=== PATIENT | male | born 1960 | race Caucasian/White ===

== ENCOUNTER 2022-09-13 23:28 | Emergency (ER) | payer BC ==
[~2022-09-13] VITALS: Ht 182.9 cm; Wt 110.0 kg
[2022-09-14 00:06] VITALS: BP 118/81
[2022-09-14 01:51] LABS: Albumin 3.5 g/dL (3.4-5.0); BUN/Creatinine Ratio 10.2; Calcium 8.5 mg/dL (8.5-10.1)
[2022-09-14 01:54] LABS: Bilirubin, Total 0.3 mg/dL (0.2-1.0)
[2022-09-14 02:11] LABS: Basophils # (auto) 0.1 10 ^3/uL (0-0.2); Basophils % (auto) 0.9 % (0.0-2.0); Eosinophils # (auto) 0.2 10 ^3/uL (0-0.8); Eosinophils % (auto) 2.1 % (0.0-7.0); Hematocrit 47.3 % (41.0-53.0); Hemoglobin 15.9 g/dL (13.5-17.5); Lymphocytes % (auto) 35.7 % (10.0-50.0); Mean Corpuscular Hemoglobin 33.2 pg (28.0-32.0); Mean Corpuscular Hgb Conc. 33.7 g/dL (32.0-36.0); Mean Corpuscular Volume 98.4 fL (80.0-100.0); Monocytes # (auto) 1.1 10 ^3/uL (0-1.3); Monocytes % (auto) 13.3 % (0.0-12.0); Nucleated Red Blood Cells % 0.2 %; Red Blood Cells 4.81 10^6/uL (4.5-5.90); Red Cell Distribution Width 13.2 % (11.8-14.3); White Blood Cell 8.4 10^3/uL (4.4-10.8)
[2022-09-14] MEDS ORDERED: KETOROLAC TROMETH 60MG/2ML VIAL IM ONE (02:45)
[2022-09-14] MEDS ORDERED: SULF400T11 PO (03:12)
== END 2022-09-14 03:19 | disposition home or self-care (01) ==
LOC: EDBD 23:28 → ER 23:28
DX: L02.01 Cutaneous abscess of face (principal)
CPT/HCPCS: 10060; 36415; 80053; 85025; 96372; 99283; J1885